=== PATIENT | female | born 1980 | race Caucasian/White ===

== ENCOUNTER 2016-08-08 21:22 | Emergency (ER) | payer OTHER ==
[2016-08-08] MEDS ORDERED: METHYLPRED SOD SUCCINATE 125 MG VIAL ONE (21:40)
[2016-08-08] MEDS ORDERED: DIPHENHYDRAMINE HCL 50 MG/1 ML VIAL ONE ×2 (21:40→23:49)
[2016-08-08] MEDS ORDERED: SODIUM CHLORIDE 0.9% 1,000 ML ONE (21:40)
[2016-08-08] MEDS ORDERED: EPINEPHRINE 1 MG/ML 1ML AMP ONE (21:41)
[2016-08-08] MEDS ORDERED: FAMOTIDINE 10 MG/ML 2ML VIAL ONE (23:49)
== END 2016-08-09 02:33 | disposition home or self-care (01) ==
LOC: ED 21:22
DX: R22.0 Localized swelling, mass and lump, head (principal); R21 Rash and other nonspecific skin eruption
CPT/HCPCS: 86901; 86850 ×3; 96375 ×2; 96376; 99284; 96372; 96374; 99283; J1200 ×2; J2930; J7030; J0171

== ENCOUNTER 2016-08-09 12:47 | Emergency (ER) | payer OTHER | END 2016-08-09 14:36 | disposition home or self-care (01) | LOC: ED 12:47 | DX: L50.0 Allergic urticaria (principal); T36.0X5A Adverse effect of penicillins, initial encounter; Y92.009 Unspecified place in unspecified non-institutional (private) residence as the place of occurrence of the external cause ==